=== PATIENT | male | born 1940 | race Caucasian/White ===

== ENCOUNTER 2018-09-28 14:26 | Emergency (ER) | payer MEDICARE, OTHER ==
--- NOTE | 2018-09-28 14:34 | ER Report ---
History and Physical Time Seen By MD: 14:34 HPI/ROS CHIEF COMPLAINT: Chest pain HISTORY OF PRESENT ILLNESS: 78-year-old male patient presents to emergency room with complaint chest pain. Patient states that he was the process of working on [employer]. He states that while he was active he started having chest pain. He states that he fell hit go sit down or lay down. He states that did improve it somewhat. He states that he is having persistent chest pain seems to the center of his chest and radiate out to both shoulders and up into his neck. He denies any nausea, vomiting or diarrhea. Patient states he has been short of breath. Patient denies any recent changes in his medication. He denies any history of any LA. REVIEW OF SYSTEMS: Respiratory: As noted above. Cardiovascular: As noted above Gastrointestinal: No vomiting, no abdominal pain. Musculoskeletal: No back pain. Allergies: Coded Allergies: No Known Drug Allergies (Verified , 09/28/18) Home Meds Discontinued Reported Medications [No Meds] No Conflict Check 01/13/08 Past Medical/Surgical History Patient denies any pertinent medical history. Patient has a surgical history of a double hernia repair. Reviewed Nurses Notes: Yes Constitutional Vital Sign - Last 24 Hours 09/28/18 09/28/18 09/28/18 09/28/18 14:30 14:35 14:46 14:56 Temp 96.4 Pulse 63 63 Resp 14 9 B/P (MAP) 139/99 (112) 139/99 163/97 (119) Pulse Ox 96 98 O2 Delivery Room Air 09/28/18 09/28/18 09/28/18 09/28/18 15:00 15:26 16:01 16:30 Pulse 66 65 Resp 22 18 B/P (MAP) 153/91 (111) 162/84 (110) Pulse Ox 98 95 09/28/18 09/28/18 09/28/18 09/28/18 16:31 17:00 17:01 17:06 Pulse 60 61 60 Resp 15 15 11 B/P (MAP) 153/93 (113) Pulse Ox 95 93 96 09/28/18 09/28/18 09/28/18 09/28/18 17:30 18:06 18:11 18:30 Pulse 73 67 Resp 28 13 B/P (MAP) 137/91 (106) 150/101 (117) Pulse Ox 94 93 09/28/18 09/28/18 09/28/18 09/28/18 18:41 18:46 19:16 19:30 Pulse 69 66 ??? Resp 12 25 B/P (MAP) 130/74 (92) Pulse Ox 95 94 09/28/18 09/28/18 09/28/18 09/28/18 19:46 20:00 20:16 20:30 Pulse 65 66 Resp 17 30 B/P (MAP) 149/91 (110) 142/87 (105) Pulse Ox 96 94 Physical Exam General Appearance: The patient is alert, has no immediate need for airway protection and no current signs of toxicity. Respiratory: Chest is non tender, lungs are clear to auscultation. Cardiac: regular rate and rhythm Gastrointestinal: Abdomen is soft and non tender, no masses, bowel sounds normal. Musculoskeletal: Neck: Neck is supple and non tender. Extremities have full range of motion and are non tender. Skin: No rashes or lesions. DIFFERENTIAL DIAGNOSIS: After history and physical exam differential diagnosis was considered for chest pain including but not limited to myocardial ischemia, pericarditis pulmonary embolus, chest wall pain, pleural inflammation and pulmonary infectious causes. Medical Decision Making Data Points Result Diagram: 09/28/18 1437 09/28/18 1437 Laboratory Hematology Test 09/28/18 14:37 09/28/18 16:02 09/28/18 17:06 Red Blood Count 5.24 M/uL (4.00-5.60) Mean Corpuscular Volume 92.7 fL (80.0-96.0) Mean Corpuscular Hemoglobin 30.8 pg (26.0-33.0) Mean Corpuscular Hemoglobin Concent 33.3 g/dL (32.0-36.0) Red Cell Distribution Width 14.8 % (11.5-14.5) Mean Platelet Volume 8.2 fL (7.2-11.1) Neutrophils (%) (Auto) 52.3 % (39.4-72.5) Lymphocytes (%) (Auto) 30.9 % (17.6-49.6) Monocytes (%) (Auto) 12.4 % (4.1-12.4) Eosinophils (%) (Auto) 4.1 % (0.4-6.7) Basophils (%) (Auto) 0.3 % (0.3-1.4) Nucleated RBC Relative Count (auto) 0.0 /100WBC Neutrophils # (Auto) 4.6 K/uL (2.0-7.4) Lymphocytes # (Auto) 2.7 K/uL (1.3-3.6) Monocytes # (Auto) 1.1 K/uL (0.3-1.0) Eosinophils # (Auto) 0.4 K/uL (0.0-0.5) Basophils # (Auto) 0.0 K/uL (0.0-0.1) Nucleated RBC Absolute Count (auto) 0.00 K/uL Peripheral Blood Smear No Y/N D-Dimer Quantitative (PE/DVT) 0.53 ug/ml (0-0.50) Sodium Level 141 mmol/L (137-145) Potassium Level 3.7 mmol/L (3.5-5.0) Chloride Level 107 mmol/L (98-107) Carbon Dioxide Level 24 mmol/L (22-30) Blood Urea Nitrogen 30 mg/dl (9-21) Creatinine 1.10 mg/dl (0.66-1.25) Glomerular Filtration Rate Calc > 60.0 Random Glucose 118 mg/dl (75-110) Calcium Level 9.6 mg/dl (8.4-10.2) Total Bilirubin 0.7 mg/dl (0.2-1.3) Aspartate Amino Transf (AST/SGOT) 26 U/L (0-35) Alanine Aminotransferase (ALT/SGPT) 30 U/L (0-56) Alkaline Phosphatase 66 U/L (0-126) Total Protein 7.4 g/dl (6.3-8.2) Albumin 4.8 g/dl (3.5-5.0) Urine Color Yellow Urine Clarity Clear Urine pH 5.0 pH (4.8-9.5) Urine Specific Vivian 1.042 Urine Protein Negative mg/dL (NEGATIVE) Urine Glucose (UA) Negative mg/dL (NEGATIVE) Urine Ketones 20 mg/dL (NEGATIVE) Urine Blood Negative (NEGATIVE) Urine Nitrite Negative (NEGATIVE) Urine Bilirubin Negative (NEGATIVE) Urine Urobilinogen Negative mg/dL (0.2-1.9) Urine Leukocyte Esterase Negative (NEGATIVE) Urine RBC 1 /HPF (0-2/HPF) Urine WBC 1 /HPF (0-5/HPF) Urine Squamous Epithelial Cells Few /LPF (</=FEW) Urine Bacteria Negative /HPF (NONE-FEW) Urine Mucus Few /HPF (NONE-FEW) Troponin I 0.274 ng/ml Chemistry Test 09/28/18 14:37 09/28/18 16:02 09/28/18 17:06 White Blood Count 8.9 k/uL (4.5-11.0) Red Blood Count 5.24 M/uL (4.00-5.60) Hemoglobin 16.2 g/dL (14.0-18.0) Hematocrit 48.6 % (42.0-52.0) Mean Corpuscular Volume 92.7 fL (80.0-96.0) Mean Corpuscular Hemoglobin 30.8 pg (26.0-33.0) Mean Corpuscular Hemoglobin Concent 33.3 g/dL (32.0-36.0) Red Cell Distribution Width 14.8 % (11.5-14.5) Platelet Count 341 K/uL (150-450) Mean Platelet Volume 8.2 fL (7.2-11.1) Neutrophils (%) (Auto) 52.3 % (39.4-72.5) Lymphocytes (%) (Auto) 30.9 % (17.6-49.6) Monocytes (%) (Auto) 12.4 % (4.1-12.4) Eosinophils (%) (Auto) 4.1 % (0.4-6.7) Basophils (%) (Auto) 0.3 % (0.3-1.4) Nucleated RBC Relative Count (auto) 0.0 /100WBC Neutrophils # (Auto) 4.6 K/uL (2.0-7.4) Lymphocytes # (Auto) 2.7 K/uL (1.3-3.6) Monocytes # (Auto) 1.1 K/uL (0.3-1.0) Eosinophils # (Auto) 0.4 K/uL (0.0-0.5) Basophils # (Auto) 0.0 K/uL (0.0-0.1) Nucleated RBC Absolute Count (auto) 0.00 K/uL Peripheral Blood Smear No Y/N D-Dimer Quantitative (PE/DVT) 0.53 ug/ml (0-0.50) Glomerular Filtration Rate Calc > 60.0 Calcium Level 9.6 mg/dl (8.4-10.2) Total Bilirubin 0.7 mg/dl (0.2-1.3) Aspartate Amino Transf (AST/SGOT) 26 U/L (0-35) Alanine Aminotransferase (ALT/SGPT) 30 U/L (0-56) Alkaline Phosphatase 66 U/L (0-126) Total Protein 7.4 g/dl (6.3-8.2) Albumin 4.8 g/dl (3.5-5.0) Urine Color Yellow Urine Clarity Clear Urine pH 5.0 pH (4.8-9.5) Urine Specific Vivian 1.042 Urine Protein Negative mg/dL (NEGATIVE) Urine Glucose (UA) Negative mg/dL (NEGATIVE) Urine Ketones 20 mg/dL (NEGATIVE) Urine Blood Negative (NEGATIVE) Urine Nitrite Negative (NEGATIVE) Urine Bilirubin Negative (NEGATIVE) Urine Urobilinogen Negative mg/dL (0.2-1.9) Urine Leukocyte Esterase Negative (NEGATIVE) Urine RBC 1 /HPF (0-2/HPF) Urine WBC 1 /HPF (0-5/HPF) Urine Squamous Epithelial Cells Few /LPF (</=FEW) Urine Bacteria Negative /HPF (NONE-FEW) Urine Mucus Few /HPF (NONE-FEW) Troponin I 0.274 ng/ml Coagulation Test 09/28/18 14:37 D-Dimer Quantitative (PE/DVT) 0.53 ug/ml Urinalysis Test 09/28/18 16:02 Urine Color Yellow Urine Clarity Clear Urine pH 5.0 pH (4.8-9.5) Urine Specific Vivian 1.042 Urine Protein Negative mg/dL (NEGATIVE) Urine Glucose (UA) Negative mg/dL (NEGATIVE) Urine Ketones 20 mg/dL (NEGATIVE) Urine Blood Negative (NEGATIVE) Urine Nitrite Negative (NEGATIVE) Urine Bilirubin Negative (NEGATIVE) Urine Urobilinogen Negative mg/dL (0.2-1.9) Urine Leukocyte Esterase Negative (NEGATIVE) Urine RBC 1 /HPF (0-2/HPF) Urine WBC 1 /HPF (0-5/HPF) Urine Squamous Epithelial Cells Few /LPF (</=FEW) Urine Bacteria Negative /HPF (NONE-FEW) Urine Mucus Few /HPF (NONE-FEW) EKG/Imaging EKG Interpretation 12 lead EKG done at 1426: Rhythm: normal sinus rhythm with sinus arrhythmia. Mature rate of 61 bpm [place]: normal QRS: normal ST segments: normal 12 lead EKG done at 1827: Rhythm: normal sinus rhythm [place]: normal QRS: Low-voltage QRS ST segments: Patient has inverted T waves in V2, V3, V4, V5, V6 Imaging EXAMINATION: CTA of the chest with IV contrast HISTORY: Chest pain. Elevated d-dimer. TECHNIQUE: Pulmonary embolus protocol - Thin axial CT images of the chest were obtained with IV contrast during maximal pulmonary arterial opacification. Reconstruction of the source data includes multiplanar 2D coronal and sagittal reconstructed images, and 3D coronal and sagittal MIP images. [employer] images have been stored on PACS. One of the following dose optimization techniques was utilized in the performance of this exam: Automated exposure control; adjustment of the mA and/or kV according to the patient's size; or use of an iterative reconstruction technique. Specific details can be referenced in the facility's radiology CT exam operational policy. Contrast: 75 mL of IV Isovue-370. COMPARISON: None. FINDINGS: Pulmonary arteries: The pulmonary arteries are well opacified, without suspicious filling defect. Heart, aorta, and great vessels: The thoracic aorta is poorly opacified but normal in caliber. Normal heart size. No pericardial effusion. Lungs and pleura: There is a 4 mm subpleural nodule in the left lower lobe posteriorly (series 11, image 184). The lungs are otherwise clear. No focal consolidation. No pleural effusion or pneumothorax. The central airways are patent. Mediastinum and rica: Negative. Visualized upper abdomen: Unremarkable. Chest wall: Negative. Bones: No acute osseous findings. Scattered degenerative changes along the spine. IMPRESSION: 1. No evidence of pulmonary embolism. 2. No other acute findings in the chest. 3. Single 4 mm subpleural nodule in the left lower lobe. Follow-up guidelines below. FLEISCHNER SOCIETY FOLLOW-UP GUIDELINES FOR NEWLY DETECTED INCIDENTAL NODULES IN PERSONS 35 YEARS OF AGE OR OLDER. *These recommendations do NOT apply to lung cancer screening, patients with immunosuppression or patients with a known primary malignancy. SOLITARY SOLID NODULE If nodule size is < 6 mm: * Low risk patient ? No routine follow-up. * High risk patient ? Optional CT at 12 months. LOW RISK PATIENT: Minimal or absent history of tobacco use and of other known risk factors. HIGH RISK PATIENT: Tobacco use, family history of lung cancer, upper pulmonary lobe location of nodule, presence of emphysema, pulmonary fibrosis, older age. Sulma H, Annmarie DP, Eliud CARDENAS, et al. Guidelines for Management of Incidental Pulmonary Nodules Detected on CT Images: From the Fleischner Society 2017. Radiology. Report Dictated By: Franki Lima MD at 09/28/2018 3:46 PM Report E-Signed By: Franki Lima MD at 09/28/2018 3:56 PM ED Course/Re-evaluation ED Course Patient was admitted to an exam room, history and physical were obtained. Differential diagnoses were considered. On examination lungs are clear, heart is regular, abdomen soft nontender. An IV was started, an EKG was done, a CBC, CMP, troponin, d-dimer were done. Lab work was unremarkable except patient did have a positive d-dimer of 0.53. A CT pulmonary angiogram was done which was negative. EKG showed no ST elevation. It was decided to go ahead and do a repeat troponin as patient was having worsening pain with activity. Patient did have persistent pain near the emergency room. That lasted until after he had returned from getting the CT pulmonary angiogram. After which time patient states that his pain significantly improved. Patient was given a dose of morphine prior to going to CT. He also had persistent pain and received a dose of Toradol. At the time of this dictation patient states that he is having any chest pain. Repeat troponin was done which showed a critical elevation. He came back at 0.217. I discussed the case with Dr. Sotelo, hospitalist at [facility]. She did agree to accept the patient for transfer. She requested that a repeat EKG was done. That was done which showed some inverted T waves, but no ST elevation. I discussed the plan with the patient is and they verbalized understanding and agre ement. Decision to Disposition Date: Sep 28, 2018 Decision to Disposition Time: 19:29 Depart Departure Latest Vital Signs Vital Signs Date Time Temp Pulse Resp B/P (MAP) Pulse Ox O2 Delivery O2 Flow Rate FiO2 09/28/18 20:30 142/87 (105) 09/28/18 20:16 66 30 94 09/28/18 14:35 96.4 Room Air Impression: Primary Impression: Elevated troponin Additional Impression: Chest pain Condition: Condition Unchanged Disposition: XFER TO [facility] Problem Qualifiers Additional Impression: Chest pain Chest pain type: other chest pain Qualified Codes: R07.89 - Other chest pain CHERISE MARINO Sep 28, 2018 14:34
[2018-09-28] MEDS ORDERED: NS(*) 0.9% 1000 ML BAG 1,000 ML IV ONE (14:40)
[2018-09-28 14:47] LABS: PLATELET COUNT, AUTOMATED 341 K/uL (150-450)
[2018-09-28] MEDS ORDERED: MORPHINE 4 MG/ML SDV IVP ONE (15:15)
--- NOTE | 2018-09-28 15:21 | EKG ---
FACILITY: [facility] PATIENT NAME: DHRUV MUNOZ : [id number] MR: [id number] V: [id number] EXAM DATE: ORDERING PHYSICIAN: CHERISE MARINO TECHNOLOGIST: WOLFGANG Mendes Reason : CP Blood Pressure : / mmHG Vent. Rate : 061 BPM Atrial Rate : 061 BPM P-R Int : 196 ms QRS Dur : 104 ms QT Int : 436 ms P-R-T Axes : 052 049 012 degrees QTc Int : [address] depression III, AVF with less in leads V3-[address] elevation V2 and lead I Abnormal ECG No previous ECGs available Confirmed by MELISSA GARRIDO ([id number]) on 09/28/2018 4:29:34 PM Referred By: Confirmed By:MELISSA GARRIDO
[2018-09-28] MEDS ORDERED: NS(*) 0.9% 50 ML BAG 50 ML ONE (15:30)
[2018-09-28] MEDS ORDERED: IOPAMIDOL 76% 75 ML INFUS BTL 75 ML ONE (15:30)
--- NOTE | 2018-09-28 16:00 | RADIOLOGY IMAGING REPORT ---
FACILITY: [facility] PATIENT NAME: Randy Dominguez : 1940 MR: [id number] V: [id number] EXAM DATE: ORDERING PHYSICIAN: CHERISE MARINO TECHNOLOGIST: Location: Patient: aRndy Dominguez : 1940 Visit/Account:[id number] Date of Sevice: 09/28/2018 EXAMINATION: CTA of the chest with IV contrast HISTORY: Chest pain. Elevated d-dimer. TECHNIQUE: Pulmonary embolus protocol - Thin axial CT images of the chest were obtained with IV con trast during maximal pulmonary arterial opacification. Reconstruction of the source data includes mul tiplanar 2D coronal and sagittal reconstructed images, and 3D coronal and sagittal MIP images. Repres entative images have been stored on PACS. One of the following dose optimization techniques was utilized in the performance of this exam: Autom ated exposure control; adjustment of the mA and/or kV according to the patient's size; or use of an i terative reconstruction technique. Specific details can be referenced in the facility's radiology C T exam operational policy. Contrast: 75 mL of IV Isovue-370. COMPARISON: None. FINDINGS: Pulmonary arteries: The pulmonary arteries are well opacified, without suspicious filling defect. Heart, aorta, and great vessels: The thoracic aorta is poorly opacified but normal in caliber. Norm al heart size. No pericardial effusion. Lungs and pleura: There is a 4 mm subpleural nodule in the left lower lobe posteriorly (series 11, i mage 184). The lungs are otherwise clear. No focal consolidation. No pleural effusion or pneumotho rax. The central airways are patent. Mediastinum and rica: Negative. Visualized upper abdomen: Unremarkable. Chest wall: Negative. Bones: No acute osseous findings. Scattered degenerative changes along the spine. IMPRESSION: 1. No evidence of pulmonary embolism. 2. No other acute findings in the chest. 3. Single 4 mm subpleural nodule in the left lower lobe. Follow-up guidelines below. FLEISCHNER SOCIETY FOLLOW-UP GUIDELINES FOR NEWLY DETECTED INCIDENTAL NODULES IN PERSONS 35 YEARS OF AGE OR OLDER. *These recommendations do NOT apply to lung cancer screening, patients with immunosuppression or robert ents with a known primary malignancy. SOLITARY SOLID NODULE If nodule size is < 6 mm: * Low risk patient ? No routine follow-up. * High risk patient ? Optional CT at 12 months. LOW RISK PATIENT: Minimal or absent history of tobacco use and of other known risk factors. HIGH RISK PATIENT: Tobacco use, family history of lung cancer, upper pulmonary lobe location of nodul e, presence of emphysema, pulmonary fibrosis, older age. Sulma H, Annmarie DP, Eliud CARDENAS, et al. Guidelines for Management of Incidental Pulmonary Nodules Dete cted on CT Images: From the Fleischner Society 2017. Radiology. Report Dictated By: Franki Lima MD at 09/28/2018 3:46 PM Report E-Signed By: Franki Lima MD at 09/28/2018 3:56 PM WSN:[email or web address]
[2018-09-28] MEDS ORDERED: KETOROLAC 15 MG/ML VIAL IVP ONE ×2 (16:35→20:40)
[2018-09-28 20:30] VITALS: BP 142/87
[2018-09-28] MEDS ORDERED: KETOROLAC 15 MG/ML VIAL ONE (20:42)
--- NOTE | 2018-09-28 21:37 | EKG ---
FACILITY: [facility] PATIENT NAME: DHRUV MUNOZ : [id number] MR: [id number] V: [id number] EXAM DATE: ORDERING PHYSICIAN: CHERISE MARINO TECHNOLOGIST: LUCIAN Test Reason : CHEST PAIN Blood Pressure : / mmHG Vent. Rate : 066 BPM Atrial Rate : 066 BPM P-R Int : 176 ms QRS Dur : 098 ms QT Int : 448 ms P-R-T Axes : -08 145 145 degrees QTc Int : 469 ms Sinus rhythm Poor R wave progression anteriorly Diffuse ST segment and T wave changes Abnormal ECG Confirmed by MELISSA GARRIDO ([id number]) on 09/29/2018 1:17:39 AM Referred By: Confirmed By:MELISSA GARRIDO
== END 2018-09-28 20:46 | disposition short-term general hospital (02) ==
LOC: ER 14:38
DX: R07.89 Other chest pain (principal); R79.89 Other specified abnormal findings of blood chemistry
CPT/HCPCS: 36415; 71275; 81001; 84484; 85025; 85379; 87088; 93005; 96361; 96374; 96375; 96376; 99285; J1885; J2270; J7030; J7050; Q9967; 82040; 82247; 82310; 82374; 82435; 82565; 82947; 84075; 84132; 84155; 84295; 84450; 84460; 84520

== ENCOUNTER → 2018-09-28 | Outpatient (CLI) | payer MEDICARE, OTHER ==
[~2018-09-28] MED LIST: NO MEDS
== END ==
LOC: AMB 20:20
PROVIDERS: ATTEND Nurse Practitioner
DX: I21.4 Non-ST elevation (NSTEMI) myocardial infarction (principal)
CPT/HCPCS: A0425; A0426

== ENCOUNTER 2019-01-06 08:00 | Outpatient (RCR) | payer MEDICARE, OTHER ==
[2018-10-09 15:43] VITALS: BP 112/58
[2018-10-09 15:44] VITALS: BP 120/64
--- NOTE | 2018-10-09 16:18 | CARDIAC REHAB PLAN OF CARE ---
Physician: Gladys Sosa DO Patient is being seen: Vale Espinoza M.S. Medical Diagnosis: NSTEMI; STENT x 2 Date of Onset: 09/28/18 Date of Initial Evaluation: 10/09/18 INTERVENTIONS: Due Date: 11/09/18 Patient Assessment: Patient is a 78 yr old male who comes to cardiac rehab following a NSTEMI and Stent x 2 placement on 09/28/18. He has an unremarkable health history, only being treated for HTN and High cholesterol post [place]. He is slightly overweight (BMI: 26kg/m2) but has remained active through most of his life. He reports no cardiovascular family history and reports very limited signs/symptoms of CVD prior to his [place]. He is highly motivated to being the CR program. Primary goals of the patient are to maintain high QoL and return to his normal activities (e.g. hiking, hunting, snowmobiling, and alpine skiing). Exercise Assessment: Patient reports being active most of his life, exercising aerobically for at least 40 minutes most days of the week with additional outdoor recreation (e.g. hiking, hunting, snowmobiling, and alpine skiing). During his 6 minute walk test, the patient walked a total of 1525ft for an average speed of 2.88mph. He had a normal hemodynamic response considering his new medication (metoprolol). His HR averaged between 70-91bpm during exercise---20-30 beats above resting. His BP ankur to 162/64 which is WNL. While exercising he averaged an RPE between 2-3 at 3.5 METs. However, during exercise the patients SPO2 drops to the low 80s. With proper breathing technique coaching, I believe he can achieve SPO2 >88% without supplemental oxygen. Exercise Plan: Goals: First goal will be to increase exercise duration to 40 minutes/session at < 4.0METs. Secondary goal will be to increase average MET level >4.0hoping to continue to increase the MET number until discharge. Exercise Prescription: Mode: Upright biking and track walking Frequency: 3 days/week (MWF) with supplemental exercise on off days at home Duration: 20-30 minutes per session the first week and increasing as tolerance will allow Intensity: THR 70-85bpm pending normal hemodynamic response. For now, keep MET level below 4.0. Education: Education will focus on proper breathing techniques during exercise in order to prevent supplemental oxygen usage and keep SPO2 >88%. Exercise Reassessment (Date: ): Exercise Discharge/Follow-Up (Date: ): Nutrition Assessment: Patient reports eating a well-rounded diet. Daily nutritional intake consists of game and/or organically raised meat and a variety of vegetables. Patient has a decent understanding of the major food groups and how to eat heart healthy, however does have room to learn in ways of healthy fats and sugar/whole grain differences. Nutrition Plan: Goals: Our goals will be to help the patient make small changes in his diet in relation to sugar decreasing and whole grains increasing. Intervention: Intervention will include providing the patient with healthy recipes and options for food swaps to make in order to reduce sugar in take and increase overall consumption of whole grains/fiber. Education: Education will include how to read food labels and identify sugar/carbohydrate content. It will also be about nutrition awarenessdevelop the patients understanding of his true sugar intake and where areas need to be improved. Nutrition Reassessment (Date: ): Nutrition Discharge/Follow-Up (Date: ): Psychosocial Assessment: Patient denies being stressed and reports never really being one to feel psychological distress in most situations. He does appear to handle stress rationally and optimistically. According to his HADS (Hospital Anxiety and Depression Scale) assessment, the patient stratifies as low for depression (1/21) and low for anxiety (1/21) risk. Psychosocial Plan: Goals: Our goals will be to help the patient gain confidence in his ability to do his daily activities and help him be aware (without being overly cautious) of his potential signs/symptoms. Intervention: We aim to help foster a safe and inviting learning and exercise environment that the patient can feel comfortable coming to and asking questions within. We hope to provide positive motivation and reinforcement to help the patient feel welcome. Education: Education will focus on sign and symptom awareness and management. Psychosocial Reassessment (Date: ): Psychosocial Discharge/Follow-Up (Date: ): Physician Signature: Date: MTDD
[2018-10-12 10:34] VITALS: BP 98/57
[2018-10-12 10:35] VITALS: BP 98/58
[2018-10-14 16:34] VITALS: BP 120/70
[2018-10-14 16:36] VITALS: BP 105/58
[2018-10-18 13:33] VITALS: BP_SYST 110; BP_SYST 122; BP_DIAS 58
[2018-10-25 17:07] VITALS: BP 110/58
[2018-10-25 17:08] VITALS: BP 112/60
[2018-10-28 18:05] VITALS: BP 117/58
[2018-10-28 18:13] VITALS: BP 120/58
[2018-10-30 18:14] VITALS: BP 122/64
[2018-10-30 18:15] VITALS: BP 105/60
[2018-11-01 13:32] VITALS: BP 124/60
[2018-11-01 13:33] VITALS: BP 98/58
[2018-11-04 13:37] VITALS: BP_SYST 115; BP_SYST 120; BP_DIAS 60; BP_DIAS 68
[2018-11-06 13:31] VITALS: BP_SYST 106; BP_SYST 108; BP_DIAS 60; BP_DIAS 68
[2018-11-11 19:31] VITALS: BP 92/54
[2018-11-11 19:32] VITALS: BP 100/60
[2018-11-13 10:33] VITALS: BP 110/58
[2018-11-13 10:34] VITALS: BP 104/58
[2018-11-15 13:30] VITALS: BP_SYST 124; BP_SYST 92; BP_DIAS 54; BP_DIAS 62
[2018-11-18 13:23] VITALS: BP_SYST 102; BP_SYST 104; BP_SYST 124; BP_SYST 92; BP_DIAS 54; BP_DIAS 62; BP_DIAS 64; BP_DIAS 66
[2018-11-20 13:14] VITALS: BP_SYST 110; BP_SYST 96; BP_DIAS 56; BP_DIAS 62
[2018-11-22 16:53] VITALS: BP 100/58
[2018-11-22 16:54] VITALS: BP 92/64
[2018-11-25 17:12] VITALS: BP 110/70
[2018-11-25 17:13] VITALS: BP 100/56
[2018-11-27 17:58] VITALS: BP 104/60
[2018-11-27 18:00] VITALS: BP 84/58
[2018-11-29 13:25] VITALS: BP 112/56
[2018-11-29 13:26] VITALS: BP 102/70
[2018-12-02 12:41] VITALS: BP_SYST 106; BP_SYST 128; BP_DIAS 58; BP_DIAS 60
[2018-12-04 13:35] VITALS: BP 100/64
[2018-12-04 13:36] VITALS: BP 100/64
[2018-12-06 17:11] VITALS: BP 108/58
[2018-12-06 17:17] VITALS: BP 96/54
[2018-12-09 17:48] VITALS: BP 112/64
[2018-12-09 17:49] VITALS: BP 100/62
[2018-12-11 13:33] VITALS: BP 130/62
[2018-12-11 13:34] VITALS: BP 104/62
[2018-12-13 13:17] VITALS: BP_SYST 108; BP_SYST 92; BP_DIAS 50; BP_DIAS 60
[2018-12-16 13:11] VITALS: BP 122/58
[2018-12-16 13:12] VITALS: BP 118/64
[2018-12-18 13:02] VITALS: BP 104/52
[2018-12-18 13:03] VITALS: BP 88/52
[2018-12-23 17:45] VITALS: BP 94/52
[2018-12-23 17:46] VITALS: BP 84/58
[2018-12-25 17:00] VITALS: BP_SYST 112; BP_SYST 92; BP_DIAS 48; BP_DIAS 52
[2018-12-27 13:25] VITALS: BP 124/60
[2018-12-27 13:26] VITALS: BP 106/50
[2019-01-01 13:20] VITALS: BP_SYST 108; BP_SYST 118; BP_DIAS 58; BP_DIAS 64
[2019-01-03 16:55] VITALS: BP 118/64
[2019-01-03 16:56] VITALS: BP 108/58
[2019-01-06 12:48] VITALS: BP 100/52
[2019-01-06 12:50] VITALS: BP 94/50
== END 2019-01-07 ==
LOC: CARD 08:00
PROVIDERS: ATTEND Family Medicine
DX: Z51.89 Encounter for other specified aftercare (principal); I25.2 Old myocardial infarction; Z95.5 Presence of coronary angioplasty implant and graft; I10 Essential (primary) hypertension; E78.00 Pure hypercholesterolemia, unspecified
CPT/HCPCS: 93798

== ENCOUNTER 2019-01-13 07:59 | Outpatient (RCR) | payer MEDICARE, OTHER ==
[2019-01-08 18:33] VITALS: BP 110/52
[2019-01-08 18:35] VITALS: BP 96/62
[2019-01-13 09:32] VITALS: BP 108/56
[2019-01-13 09:33] VITALS: BP 98/52
--- NOTE | 2019-01-13 09:37 | CARDIAC REHAB PLAN OF CARE ---
Physician: Gladys Sosa DO Patient is being seen: Vale Espinoza MS Medical Diagnosis: NSTEMI; STENT x 2 Date of Onset: 09/28/18 Date of Initial Evaluation: 10/09/18 Number of treatments: 36 INTERVENTIONS: Due Date: 01/13/19 Exercise Discharge/Follow-Up (Date: 01/13/19): The patient adhered to the entirety of the program, completing 36 visits within 3 months. By the end of the program, he was completing 55 minutes/session of continuous biking/walking within his THR zone (80-95bpm). This was in addition to other physical activity on his off dayswalking, snowmobiling, and hiking. His SPO2 levels improved throughout the program, in the beginning they dropped into the mid 80s and now they remain in the low to mid 90s during exercise. His ExBP also improved as during his first visit his BP increased to 162/64 during exercise, and now his BP increases to 134/72 on average. All of these results show an improved function of the myocardium and the hearts ability to supply oxygen to the body. He does not plan to continue to Phase III, but has joined a gym and plans to remain active daily. Nutrition Discharge/Follow-Up (Date: 01/13/19): Patient continues his healthy/well-rounded diet. Over the course of the program he received several informative and education hand out related to healthy diet/nutrition. He was not entirely interested in these topics, but took the information home. He does not appear to be concerned about his nutritional diet or motivated to change it. Psychosocial Discharge/Follow-Up (Date: 01/13/19): The patient entered the program with high motivation and that remained constant throughout the entire 3 months. He enjoyed his time in the program and expresses his belief that it has helped him learn and gain confidence. He reports feeling better than when he started. According to his HADS assessment, his anxiety and depression symptoms still remain low. Upon his discharge, he is aware he can always contact us if he has questions or concerns. KENDRA
== END 2019-01-13 10:54 | disposition home or self-care (01) ==
LOC: CARD 07:59
PROVIDERS: ATTEND Family Medicine
DX: Z51.89 Encounter for other specified aftercare (principal); I25.2 Old myocardial infarction; Z95.5 Presence of coronary angioplasty implant and graft; I10 Essential (primary) hypertension; E78.00 Pure hypercholesterolemia, unspecified
CPT/HCPCS: 93798

== ENCOUNTER → 2019-01-17 | Outpatient (CLI) | payer MEDICARE, OTHER ==
[2019-01-17 09:04] LABS: LDL CHOLESTEROL 60 mg/dl
== END ==
LOC: US 04:09
PROVIDERS: ATTEND Internal Medicine
DX: I25.5 Ischemic cardiomyopathy (principal); I21.4 Non-ST elevation (NSTEMI) myocardial infarction; I25.10 Atherosclerotic heart disease of native coronary artery without angina pectoris; E78.00 Pure hypercholesterolemia, unspecified
CPT/HCPCS: 36415; 82040; 82247; 82310; 82374; 82435; 82465; 82565; 82947; 83718; 84075; 84132; 84155; 84295; 84450; 84460; 84478; 84520; 93306